=== PATIENT | female | born 1965 | race Caucasian/White ===

== ENCOUNTER → 2017-01-11 | Outpatient (CLI) | payer OTHER ==
[2017-01-11 14:00] VITALS: BP 116/70; PULSE 117; RESP 18; TEMP 99.5
--- NOTE | 2017-01-13 16:52 | P.PN ---
Subjective This is follow-up visit for this patient with a history of severe and chronic low back pain secondary to lumbar degenerative disc diseases , myofascial pain syndrome cervical area,, we have done interventional pain management injection,, number epidural steroid injections 3 which was done in February 2016, and also had trigger point injections cervical area, and is currently on pain medications 1-Percocet 10/325 every 6 july Patient denies any side effects of the medication, denies excessive drowsiness or sleepiness, denies suicidal ideation, and reports that the current pain medication is NOT helping To control the pain and improve activity of daily living Patient denies any motor or sensory deficit , patient denies any fever or night sweats, denies any change in the bowel movements or urination Physical Examinations : 1-Constitutiona : Cooperative , not in acute distress . 2-HEENT : nech ; supple , no Lymphadenopathy , no Thyromegaly , normal thyroid size . eyes : no ptosis , no icterus, no photophobia . ENT : normal of hearing , normal oropharynx , no Thrush . 3- Respiratory : Chest clear to auscultations Bilaterally , no wheezing , no Rhonchi . 4- Cardiovascular : regular rate and rhythem , S1 , S2 , no S3 , no S4. 5- Gastrointestinal : abdomen soft no tenderness , bowel sounds positive all four quadrents , no organomegally . 6- Genitourinary : Defferred . 7- neurologic : Cranial nerve II to XII intact , no focal neurological deffecit . 8-psychatric : alert , oriented X 3 , appropriate affect , intact judgment and insight . 9-Lymphatic : no Lymphadenopathy . 10- musculoskeltal : exams of the cervical spine = motor strength normal bilateral upper extremities exams of the Lumber spine = motor strength lower extremities ,thigh and legs .5/5 deep tendon reflexes : normal Knee Jerk , normal ankle Jerk . lumber facet Loading Test positive strait leg raising test positive at 30 degree , RT ,LT , Fabere test positive RT and positive LT . Range of motion: Range of motion in flexion of the lumbar spine 30 degrees Range of motion range of motion of extension of the lumbar spine 10 Assessment and plan = - Chronic low back pain secondary to lumbar degenerative disc disease, she had good results after lumbar epidural steroid injection done last year - chronic and current use of high-risk medication (Opioids). The patient was counseled about risk of opioid use, psychological risk associated with opioids and was orally counseled to not overuse , divert,or sell dictations to take medications as prescribed only , and to restore medication in safe location , and the patient counseled against driving while using narcotic medications, and also not to use alcohol or any illicit recreational drugs, the patient's verbalized understanding that the lack of compliance will result in failure to renew narcotic prescription and possible discharge from the clinic - diagnoses, prognosis, and treatment options including but not limited to physical therapy, surgical interventions, interventional therapies , and medication management including narcotics and adjuvant medication were discussed with the patient and all The questions answered, patient could benefit from repeat lumbar epidural steroid injections, to see risk and benefits and alternatives discussed with the patient and he agreed with the preceding Objective - Vital Signs Vital signs: Vital Signs Temp 99.5 F 01/11/17 13:53 Pulse 117 H 01/11/17 13:53 Resp 18 01/11/17 13:53 BP 116/70 01/11/17 13:53 Pulse Ox
== END | disposition home or self-care (01) ==
LOC: PNWHC3 13:02
PROVIDERS: ATTEND Specialist
DX: M51.36 Other intervertebral disc degeneration, lumbar region (principal); M79.1 Myalgia; Z79.891 Long term (current) use of opiate analgesic
CPT/HCPCS: 99211

== ENCOUNTER 2017-02-10 10:43 | Day surgery (SDC) | payer OTHER ==
[2017-02-08 11:23] VITALS: BMI 16.7
[~2017-02-10 10:43] MED LIST: LACTATED RINGERS 1,000 ML IV SCH
[2017-02-10 10:59] VITALS: TEMP 99
[2017-02-10] MEDS ORDERED: LIDOCAINE 1% 20 ML VIAL (10MG/ML) FOR IV START INTRADERMA ONE (11:02)
[2017-02-10] MEDS ORDERED: DEXAMETHASONE SOD PHOS (MDV) 100 MG/10 ML VIAL ONE (11:35)
[2017-02-10] MEDS ORDERED: IOHEXOL 180 MG/ML 1 ML ML ONE (11:35)
[2017-02-10] MEDS ORDERED: MIDAZOLAM 2 MG/2 ML VIAL ONE (11:35)
[2017-02-10] MEDS ORDERED: fentaNYL (PF) 50 MCG/ML 2 ML AMP ONE (11:35)
--- NOTE | 2017-02-10 11:57 | P.PCN ---
Date of Procedure: 02/10/17 Preoperative Diagnosis: Postoperative Diagnosis: Procedure(s) Performed: Implants: Surgeon: Christiano Guerrero Pathology: none sent Condition: stable Disposition: PACU Indications for Procedure: Operative Findings: Description of Procedure: PREOPERATIVE DIAGNOSIS: 1-Lumbar radiculitis. POSTOPERATIVE DIAGNOSIS: 1-Lumbar radiculitis. PROCEDURE 1. Lumbar epidural steroid injection under fluoroscopic guidance at the L5-S1 level. 2. Lumbar epidurogram. ANESTHESIA: Local with 1% lidocaine; IV sedation with Versed/fentanyl. EBL: Minimal PROCEDURE INDICATION: The patient with low back pain and radiculitis symptoms unresponsive to conservative treatment. Fluoroscopy was used to optimize visualization of the needle placement and to maximize safety. No use of blood thinners. PROCEDURE DESCRIPTION / TECHNIQUE: The patient was seen and identified in the preoperative area. Risks, benefits, complications, and alternatives were discussed with the patient, including but not limited to bleeding, infection, nerve damage, allergic reactions to medications, and incomplete pain relief. The patient agreed to proceed with the procedure and signed the consent after all questions were answered. IV was started, and vital signs were stable. Patient was taken to the OR and time out was completed to confirm patient position, procedure, laterality of pain, and allergies. The patient was placed in the prone position on procedure table and a pillow was placed under the abdomen to reduce lumbar lordosis. The lumbosacral area was prepped and draped in the usual sterile fashion. Critical pause was taken. Vital signs were closely monitored during the procedure. Conscious sedation was used during the procedure to decrease patients anxiety. Using anterior-posterior fluoroscopy, the L5-S1 interlaminar space was identified and the skin over this site was marked and then infiltrated with 1% lidocaine subcutaneously in a right paramedian fashion. Subsequently, a 20- gauge 3.5-inch Tuohy epidural needle was inserted and advanced toward the epidural space using the Loss of resistance technique and guided by AP and lateral fluoroscopy. The correct needle position in the epidural space was verified with the injection of 2 mL of the water soluble contrast dye Omnipaque 300 contrast and observing an excellent epidurogram with the epidural spread of the dye, after negative aspiration for blood and CSF and in the absence of paresthesias. Again after negative aspiration, a 8 ml mixture containing 20 mg of PF Decadron and 4 ml of preservative free Normal Saline, and 2 ml of preservative free lidocaine 1% solution was injected and a washout of epidurogram was seen. Needle was withdrawn intact, skin was cleansed, and bandages were applied. COMPLICATIONS: None COMMENTS: DISPOSITION / PLANS: The patient was placed in a supine position and transferred to the recovery area in a stable condition for observation. There was no evidence of lower extremity motor or sensory deficit after the procedure. Patient was discharged from the recovery room after meeting discharge criteria. Home discharge instructions were given to the patient by the staff. The patient was reexamined prior to discharge and there were no issues. The patient will schedule a repeat LESI in 4-6 weeks.
[2017-02-10] MEDS ORDERED: IV FLUID CONTINUATION 1,000 ML IV ONE (12:01)
[2017-02-10 12:04] VITALS: RESP 18
[2017-02-10 12:22] VITALS: BP 113/76; PULSE 75
--- NOTE | 2017-02-10 13:23 | FL ---
EXAMINATION TYPE: FL guided pain mgmt statistic DATE OF EXAM: 02/10/2017 12:00 PM FLUOROSCOPY Fluoroscopy time of 22 seconds was used during lumbar epidural injection. 3 image/s document/s the p rocedure.
== END 2017-02-10 12:29 | disposition home or self-care (01) ==
LOC: ORPAIN 10:43
PROVIDERS: ATTEND Specialist
DX: M54.16 Radiculopathy, lumbar region (principal); K25.9 Gastric ulcer, unspecified as acute or chronic, without hemorrhage or perforation; Z79.891 Long term (current) use of opiate analgesic; Z79.899 Other long term (current) drug therapy; Z88.8 Allergy status to other drugs, medicaments and biological substances; Z91.09 Other allergy status, other than to drugs and biological substances
CPT/HCPCS: 62323; 99152; J2250; Q9965; J3010; J1100

== ENCOUNTER 2017-03-09 06:27 | Day surgery (SDC) | payer OTHER ==
[2017-03-07 13:12] VITALS: BMI 16.7
[2017-03-09 06:47] VITALS: RESP 18; TEMP 98.2
[2017-03-09] MEDS ORDERED: IOHEXOL 180 MG/ML 1 ML ML ONE (07:00)
[2017-03-09] MEDS ORDERED: DEXAMETHASONE SOD PHOS (MDV) 100 MG/10 ML VIAL ONE (07:00)
--- NOTE | 2017-03-09 07:18 | P.PCN ---
Date of Procedure: 03/09/17 Preoperative Diagnosis: Postoperative Diagnosis: Procedure(s) Performed: PREOPERATIVE DIAGNOSIS: 1- Lumbar Degenerative Disc Diseases. POSTOPERATIVE DIAGNOSIS: 1-Lumber Degenerative Disc Diseases. PROCEDURE 1. Lumbar epidural steroid injection under fluoroscopic guidance at the L5-S1 level. 2. Lumbar epidurogram. ANESTHESIA: Local with 1% lidocaine 3 ml .( NO IV Sdations was given ) EBL: Minimal PROCEDURE INDICATION: The patient with low back pain and radiculitis symptoms unresponsive to conservative treatment. Fluoroscopy was used to optimize visualization of the needle placement and to maximize safety. PROCEDURE DESCRIPTION / TECHNIQUE: The patient was seen and identified in the preoperative area. Risks, benefits , complications including but not limited to infections ,bleeding ,allergic reaction to the medications ,nerve damage and not complete pain releife , and alternatives were discussed with the patient. The patient agreed to proceed with the procedure and signed the consent, and vital signs were stable. Patient was taken to the OR and time out was completed. The patient was placed in the prone position on procedure table and a pillow was placed under the abdomen to reduce lumbar lordosis. The lumbosacral area was prepped and draped in the usual sterile fashion. Vital signs was monitered during the entire procedure. Using anterior-posterior fluoroscopy, the L5-S1 interlaminar space was identified and the skin over this site was marked and then infiltrated with 1% lidocaine subcutaneously. Subsequently, a 20-gauge Tuohy epidural needle was inserted and advanced toward the epidural space using the ``Loss of resistance technique and guided by AP and lateral fluoroscopy. The correct needle position in the epidural space was verified with the injection of 2 mL of the water soluble contrast dye Omnipaque 180 contrast and observing an excellent epidurogram with the epidural spread of the dye, after negative aspiration for blood and CSF and in the absence of paresthesias. Again after negative aspiration, a 6 ml mixture containing 20 mg of Dexamethasone and 2 ml of preservative free Normal Saline, and 2 ml of preservative free lidocaine 1% solution was injected and a washout of epidurogram was seen. Needle was withdrawn intact, skin was cleansed, and bandages were applied. COMPLICATIONS: None DISPOSITION / PLANS: The patient was placed in a supine position and transferred to the recovery area in a stable condition for observation. There was no evidence of lower extremity motor or sensory deficit after the procedure. Patient was discharged from the recovery room after meeting discharge criteria. Home discharge instructions were given to the patient by the staff. The patient was reexamined prior to discharge. The patient will schedule a follow up in the clinic in 2-4 weeks. Implants: Indications for Procedure: Operative Findings: Description of Procedure:
[2017-03-09 07:45] VITALS: BP 118/84; PULSE 83
--- NOTE | 2017-03-09 07:56 | FL ---
EXAMINATION TYPE: FL guided pain mgmt statistic DATE OF EXAM: 03/09/2017 CLINICAL HISTORY: Low back pain. TECHNIQUE: Fluoroscopy. COMPARISON: None. FINDINGS: Fluoroscopic guidance was provided during pain relief procedure performed by Dr. Iyer . A total of 1 seconds of fluoroscopic time was utilized during the procedure and 1 spot image is ac quired. Single image acquired shows needle localization in the lower lumbar spine. IMPRESSION: As Above.
== END 2017-03-09 07:53 | disposition home or self-care (01) ==
LOC: ORPAIN 06:27
PROVIDERS: ATTEND Specialist
DX: M51.16 Intervertebral disc disorders with radiculopathy, lumbar region (principal); Z88.8 Allergy status to other drugs, medicaments and biological substances; Z86.73 Personal history of transient ischemic attack (TIA), and cerebral infarction without residual deficits
CPT/HCPCS: 62323; Q9965; J1100

== ENCOUNTER 2017-04-18 06:30 | Day surgery (SDC) | payer OTHER ==
[2017-04-18 06:43] VITALS: RESP 18; TEMP 98.6
--- NOTE | 2017-04-18 07:28 | P.PCN ---
Date of Procedure: 04/18/17 Preoperative Diagnosis: Lumbar Radiculopathy Postoperative Diagnosis: Same as above Procedure(s) Performed: Lumbar epidural Steroid injection under fluoroscopic guidance in the interlaminar approach Implants: Anesthesia: MAC, local, none, other Surgeon: Masha Agee Pathology: none sent Condition: stable Disposition: PACU Indications for Procedure: Operative Findings: Description of Procedure: The patient was seen in the preop holding area consent was obtained and was brought into the procedure room and placed in prone position. Skin was prepped with Betadine 3 and draped in a sterile manner. Lidocaine 1% was used to numb the skin up at the target points that was at the L4 5 level in the right paramedian approach. Used 20-gauge 3-1/2 inch Touhy epidural needle with loss- of-resistance to air to identify the epidural space. There was positive loss-of -resistance to air at about 5 cm from skin negative aspiration for any CSF or blood and negative paresthesia I then injected 1 mL of Omnipaque which showed typical epidurogram with AP and lateral views of fluoroscopy. I Then injected 40 mg of Kenalog +2 MLS of Marcaine 0.25% +4 MLS of preservative free normal saline to a total volume of 7 MLS in the epidural space. Patient tolerated procedure well. Fluoroscopy time 2 seconds.
[2017-04-18 07:44] VITALS: BP 123/89; PULSE 94
--- NOTE | 2017-04-18 07:47 | FL ---
FLUOROSCOPY 2 seconds of fluoroscopy time were utilized during Pain Injection. 2 images document the procedure.
== END 2017-04-18 07:53 | disposition home or self-care (01) ==
LOC: ORPAIN 06:30
PROVIDERS: ATTEND Anesthesiology
DX: M54.16 Radiculopathy, lumbar region (principal); Z88.6 Allergy status to analgesic agent; Z88.8 Allergy status to other drugs, medicaments and biological substances
CPT/HCPCS: 62323; J3301; Q9965

== ENCOUNTER → 2017-05-18 | Outpatient (CLI) | payer OTHER ==
[2017-05-18 14:58] VITALS: BP 135/87; PULSE 102; RESP 18; TEMP 98.4
--- NOTE | 2017-05-19 09:39 | P.PN ---
Subjective This is follow-up visit for this patient with a history of severe and chronic low back pain secondary to lumbar degenerative disc diseases ,we have done interventional pain management , Lumbar epidural steroid injections x3 , she reported that her low back pain improved significantly from epidural steroid injection but she is currently complaining of Mid back pain which is increased with any activity, she is currently on pain medication 1-Percocet 10/325 every 6 hours 2-oxycodone 30 mg every 6 hours 3-Mobic 7.5 mg daily at bedtime Patient denies any side effects of the medication, denies excessive drowsiness or sleepiness, denies suicidal ideation, and reports that the current pain medication is NOT helping To control the pain and improve activity of daily living Patient denies any motor or sensory deficit , patient denies any fever or night sweats, denies any change in the bowel movements or urination Physical Examinations : 1-Constitutiona : Cooperative , not in acute distress . 2-HEENT : nech ; supple , no Lymphadenopathy , no Thyromegaly , normal thyroid size . eyes : no ptosis , no icterus, no photophobia . ENT : normal of hearing , normal oropharynx , no Thrush . 3- Respiratory : Chest clear to auscultations Bilaterally , no wheezing , no Rhonchi . 4- Cardiovascular : regular rate and rhythem , S1 , S2 , no S3 , no S4. 5- Gastrointestinal : abdomen soft no tenderness , bowel sounds positive all four quadrents , no organomegally . 6- Genitourinary : Defferred . 7- neurologic : Cranial nerve II to XII intact , no focal neurological deffecit . 8-psychatric : alert , oriented X 3 , appropriate affect , intact judgment and insight . 9-Lymphatic : no Lymphadenopathy . 10- musculoskeltal : exams of the cervical spine = motor strength normal bilateral upper extremities Exam of the thoracic spine= multiple trigger point identified in the thoracic paravertebral muscles T4 to T8 levels exams of the Lumber spine = motor strength lower extremities ,thigh and legs .5/5 Assessment and plan = Chronic low back pain secondary to lumbar degenerative disc disease , improved after lumbar epidural steroid injections Myofascial pain syndrome thoracic area ( new ) - diagnoses, prognosis, and treatment options including but not limited to physical therapy, surgical interventions, interventional therapies , and medication management including narcotics and adjuvant medication were discussed with the patient and all the questions answered Patient could benefit from muscle relaxant Flexeril 5 mg twice a day and also she could benefit from trigger point injections she will be scheduled to trigger point injections RODO I'll patient should continue her current medication Percocet 10/325 every 6 hours/oxycodone 50 mg every 6 hours when necessary/Mobic 7.5 mg daily at bedtime Objective - Vital Signs Vital signs: Vital Signs Temp 98.4 F 05/18/17 14:52 Pulse 102 H 05/18/17 14:52 Resp 18 05/18/17 14:52 BP 135/87 05/18/17 14:52 Pulse Ox 99 05/18/17 14:52 Intake & Output 05/18/17 05/19/17 05/19/17 18:59 06:59 18:59 Weight 50.802 kg
== END ==
LOC: PNWHC3 13:58
PROVIDERS: ATTEND Specialist
DX: M51.36 Other intervertebral disc degeneration, lumbar region (principal); M79.1 Myalgia; Z79.891 Long term (current) use of opiate analgesic; Z79.899 Other long term (current) drug therapy
CPT/HCPCS: 99211